=== PATIENT | female | born 1985 | race Caucasian/White ===

== ENCOUNTER 2019-02-08 10:13 | Emergency (ER) | payer MEDICAID, OTHER | END 2019-02-08 10:43 | disposition left against medical advice (07) | LOC: ED 10:40 | DX: R19.7 Diarrhea, unspecified (principal); Z53.21 Procedure and treatment not carried out due to patient leaving prior to being seen by health care provider ==

== ENCOUNTER 2019-05-06 10:46 | Day surgery (SDC) | payer OTHER ==
[~2019-05-06] VITALS: Ht 165.1 cm; Wt 56.4 kg
[~2019-05-06 10:46] MED LIST: EPINEPHRINE 1 MG/ML, 1ML ONE; ESTR2TAB PO; LIDOCAINE 1%, 20ML ONE; ROPIvacaine/PF 0.5%, 30 ML ONE
[2019-05-06 11:11] VITALS: BP 106/72
[2019-05-06] MEDS ORDERED: LACTATED RINGERS 1,000 ML IV SCH (11:14)
[2019-05-06] MEDS ORDERED: GABAPENTIN 300 MG CAPSULE PO ONE (11:30)
[2019-05-06] MEDS ORDERED: SCOPOLAMINE PATCH, 1.5MG PATCH.TD72 TD ONE (11:30)
[2019-05-06] MEDS ORDERED: ACETAMINOPHEN 500 MG TABLET PO ONE (11:30)
[2019-05-06 11:37] LABS: HCG UR SG 1.022 (1.003-1.030)
[2019-05-06] MEDS ORDERED: FENTANYL PF 100 MCG/2ML ONE ×2 (12:01→14:04)
[2019-05-06] MEDS ORDERED: MIDAZOLAM 1 MG/ML, 2ML ONE (12:01)
[2019-05-06] MEDS ORDERED: DEXAMETHASONE 4 MG/ML, 1ML ONE (13:18)
[2019-05-06] MEDS ORDERED: LIDOCAINE-MPF 2% ,5ML ONE (13:18)
[2019-05-06] MEDS ORDERED: KETOROLAC 30 MG/1 ML ONE (13:18)
[2019-05-06] MEDS ORDERED: PROPOFOL 10 MG/ML, 20ML ONE (13:18)
[2019-05-06] MEDS ORDERED: ONDANSETRON 2MG/ML, 2ML ONE (13:18)
[2019-05-06] MEDS ORDERED: CEFAZOLIN 1,000 MG ONE (13:18)
[2019-05-06] MEDS ORDERED: OXYcodone 5 MG/5 ML ORAL.SOL UDC ONE (14:05)
[2019-05-06] MEDS: FENTANYL PF 100 MCG/2ML IV PRN ×2 (14:14→14:23)
[2019-05-06] MEDS ORDERED: HYDROmorphone 1 MG/ML, 1ML VIAL ONE (14:25)
[2019-05-06] MEDS ORDERED: OXYcodone 5 MG/5 ML ORAL.SOL UDC PO PRN (14:30)
[2019-05-06] MEDS ORDERED: ONDANSETRON 2MG/ML, 2ML IV PRN (14:30)
[2019-05-06] MEDS ORDERED: HYDROmorphone 2 MG/ML, 1ML IVPush PRN (14:30)
== END 2019-05-06 15:40 | disposition home or self-care (01) ==
LOC: OUT 10:46
PROVIDERS: ATTEND Orthopaedic Surgery
DX: S83.271A Complex tear of lateral meniscus, current injury, right knee, initial encounter (principal); M94.261 Chondromalacia, right knee; J45.909 Unspecified asthma, uncomplicated; Z98.890 Other specified postprocedural states; X58.XXXA Exposure to other specified factors, initial encounter; Y93.89 Activity, other specified; Y92.89 Other specified places as the place of occurrence of the external cause; Y99.8 Other external cause status
CPT/HCPCS: 29881; 81025; J0171; J0690; J1100; J1170; J1885; J2250; J2405; J2704; J2795; J3010; J7120